=== PATIENT | female | born 1970 | race Caucasian/White ===

== ENCOUNTER → 2021-07-09 10:00 | Outpatient (BNVA) | payer OTHER, SELFPAY | PROVIDERS: Visit Provider Obstetrics & Gynecology | DX: Z12.4 Encounter for screening for malignant neoplasm of cervix (principal); N95.1 Menopausal and female climacteric states | CPT/HCPCS: 82670; 83001; 87624 ==

== ENCOUNTER 2021-09-22 06:59 | Outpatient (CLI) | payer OTHER, SELFPAY ==
--- NOTE | 2021-09-22 07:15 | US_ITS ---
WS: [id number] TRANSABDOMINAL PELVIC AND TRANSVAGINAL PELVIC ULTRASOUND HISTORY: N94.10 - Unspecified dyspareunia COMPARISON: None available. Uterus: 7.5 cm x 3.6 cm x 2.6 cm. Normal size anteverted uterus. There are 2 hypoechoic nodules in th e myometrium consistent with intramural fibroids. The largest is along the anterior RIGHT lateral cher-ae heights jayde measuring 1.1 x 1.0 x 1.0 cm. There is a smaller fibroid along the inferior anterior uterine segm ent. Endometrium: 0.6 cm. Normal endometrium. Right ovary: 1.1 cm x 1.4 cm x 1.1 cm. Small atrophic ovary as expected. No mass. Normal vascularity. Left ovary: 1.8 cm x 1.6 cm x 1.2 cm. Small atrophic ovary as expected. Normal vascularity. No mass. No free fluid. US/US pelvic with transvaginal IMPRESSION: 1. Fibroid uterus. There are 2 intramural fibroids. The largest in the RIGHT a nterior myometrium measures 11 x 10 x 10 mm. 2. Normal endometrium.
== END 2021-09-22 07:00 | disposition home or self-care (01) ==
PROVIDERS: Visit Provider Obstetrics & Gynecology
DX: N94.10 Unspecified dyspareunia (principal)
CPT/HCPCS: 76830; 76856

== ENCOUNTER → 2021-10-06 15:51 | Outpatient (BNVA) | payer OTHER, SELFPAY | PROVIDERS: Visit Provider Obstetrics & Gynecology | DX: Z12.4 Encounter for screening for malignant neoplasm of cervix (principal) | CPT/HCPCS: 88175 ==

== ENCOUNTER → 2023-02-23 15:19 | Outpatient (BNVA) | payer OTHER, SELFPAY | PROVIDERS: Visit Provider Nurse Practitioner Women's Health | DX: D21.9 Benign neoplasm of connective and other soft tissue, unspecified (principal) | CPT/HCPCS: 76830 ==

== ENCOUNTER → 2024-03-14 16:09 | Outpatient (BNVA) | payer OTHER, SELFPAY | PROVIDERS: Visit Provider Nurse Practitioner Women's Health | DX: Z78.0 Asymptomatic menopausal state (principal) | CPT/HCPCS: 82306; 82670 ==